=== PATIENT | female | born 1960 | race Caucasian/White ===

== ENCOUNTER 2022-07-02 19:17 | Emergency (ER) | payer MEDICAID ==
[~2022-07-02] VITALS: Ht 172.7 cm; Wt 68.2 kg
[2022-07-02 20:14] VITALS: BP 77/44
[2022-07-02] MEDS: ketorolac trometh inj. 60 MG/2 ML VIAL IM ONE (23:18)
[2022-07-02] MEDS: LORazepam 1 MG tablet PO ONE (23:18)
--- NOTE | 2022-07-02 23:21 | NUR ---
PO MED GIVEN IM GIVEN
== END 2022-07-03 00:05 | disposition home or self-care (01) ==
LOC: ER 19:18
DX: G44.209 Tension-type headache, unspecified, not intractable (principal); M54.2 Cervicalgia
CPT/HCPCS: 96372; 99283; J1885